=== PATIENT | female | born 1930 | race Caucasian/White ===

== ENCOUNTER 2016-06-23 15:18 | Emergency (ER) | payer MEDICARE, MEDICAID ==
[2016-06-23 16:12] LABS: #Basophils 0.1 thou/uL (0.0-0.2); #Eosinphils 0.1 thou/uL (0.0-0.7); #Lymphocytes 1.1 thou/uL (1.20-3.40); #Monocytes 0.5 thou/uL (0.11-0.59); %Basophils 1.4 % (0.0-1.0); %Eosinophils 2.5 % (0.0-10.0); %Lymphocytes 18.3 % (21.0-51.0); %Monocytes 8.5 % (0.0-10.0); %Neutrophils 69.3 % (42.0-75.0); Hemoglobin 12.3 g/dL (12.0-16.0); Mean Corpuscular HGB CONC 33.2 g/dL (32.0-36.0); Mean Corpuscular Volume 84.2 fl (81.0-99.0); Mean Platelet Volume 6.5 fL (7.4-10.4); Platelet Count 217 thou/uL (130-400); RBC Distribution Width 13.8 % (11.5-14.5); Red Blood Cell (RBC) Count 4.39 mill/uL (4.20-5.40); White Blood Cell (WBC) Count 5.8 thou/uL (4.8-10.8)
[2016-06-23 16:27] LABS: CKMB 2.5 ng/mL (0-6.6); Troponin I Less than 0.010 ng/mL (< 0.028)
[2016-06-23 16:28] LABS: Anion Gap 15 mmol/L (10-20); BUN (Urea Nitrogen) 20 mg/dL (9.8-20.1); Calc. Creatinine Clearance 0 mL/min (70-130); Carbon Dioxide 28 mmol/L (23-31); Chloride 103 mmol/L (98-107); Estimated GFR-MDRD 60; Potassium 4.3 mmol/L (3.5-5.1); Sodium 142 mmol/L (136-145)
[2016-06-23 16:29] LABS: ALT (SGPT) 17 U/L (0-55); AST (SGOT) 19 U/L (5-34); Albumin 4.2 g/dL (3.4-4.8); Alkaline Phosphatase 62 U/L (40-150); Bilirubin, Total 0.4 mg/dL (0.2-1.2); CK (CPK) 89 U/L (29-168); Calcium 10.1 mg/dL (7.8-10.44); Globulin 2.2 g/dL (2.4-3.5); Glucose 91 mg/dL (83-110); Lipase 30 U/L (8-78); Protein, Total 6.4 g/dL (5.8-8.1)
--- NOTE | 2016-06-23 16:29 | RAD ---
SINGLE VIEW OF CHEST: Date: 06/23/16 INDICATION: Chest pain. COMPARISON: Prior exam dated 10/14/15. FINDINGS: There is stable elevation of the right hemidiaphragm. No focal air space opacity, pleural effusion, or pneumothorax evident. Heart size and pulmonary vasculature are within normal limits. Chronic osse ous changes are similar to the comparison exam. IMPRESSION: No acute cardiopulmonary abnormality. POS: H
--- NOTE | 2016-06-23 16:56 | PICIS ---
[facility] EMERGENCY RECORD TRIAGE (MonJun 23, 2016 15:23 TRAVIS) TRIAGE NOTES: CHEST PAIN SINCE MONDAY MORNING. (MonJun 23, 2016 15:23 TRAVIS) PATIENT: NAME: Veronika Rios, AGE: 86, GENDER: female, : Sat 1930, TIME OF GREET: MonJun 23, 2016 15:19, PREFERRED LANGUAGE: Lithuanian, ETHNICITY: Not or , FALL RISK: YES, ECODE BILLING MAP: [facility], SSN: [id number], Zip Code: [address], KG WEIGHT: 67.13 (est.), PHONE: , , , PERSON ID: [id number], PCP: MD Penaloza Grover. (MonJun 23, 2016 15:23 TRAVIS) COMPLAINT: HIGH RISK COMPLAINT: CHEST PAIN. (MonJun 23, 2016 15:23 TRAVIS) ADMISSION: URGENCY: 2 Emergent, ADMISSION SOURCE: Home, TRANSPORT: Walk-in, BED: ED -02. (MonJun 23, 2016 15:23 TRAVIS) ASSESSMENT: Additional Triage notes: PATIENT C/O CHEST PAIN SINCE MONDAY. (15:32 TRAVIS) PAIN: Location CHEST. (15:32 TRAVIS) IMMUNIZATIONS: Flu vaccine up to date, Tetanus immunization up to date, Pneumococcal vaccine up to date. (15:32 TRAVIS) SIRS SCORING: Heart Rate 55-109 (0), Temp range 96.8-101.1 (0), respiratory rate 12-24 (0), Mental Status altered: no (0). (15:32 TRAVIS) TRIAGE SCREENING: Patient denies suicidal ideation, Patient denies presence of domestic violence. (15:32 TRAVIS) PROVIDERS: TRIAGE NURSE: Trista Bueno RN. (MonJun 23, 2016 15:23 TRAVIS) PREVIOUS VISIT ALLERGIES: codeine sulfate, orange juice, Penicillins, PHENobarbital. (MonJun 23, 2016 15:23 TRAVIS) codeine sulfate, orange juice, Penicillins, PHENobarbital. (15:32 TRAVIS) KNOWN ALLERGIES Actonel codeine sulfate Penicillins PHENobarbital CURRENT MEDICATIONS (15:34 TRAVIS) amLODIPine: TABLET : Strength - 10 mg : ORAL Patient Dose: 5 mg Oral once a day (in the morning). aspirin: TABLET, CHEWABLE : Strength - 81 mg : ORAL Patient Dose: mg Oral once a day. Claritin: TABLET : Strength - 10 mg : ORAL Patient Dose: once a day (in the morning). gabapentin: TABLET : Strength - 300 mg : ORAL Patient Dose: 2 times a day. omeprazole: &a-1R&a+25V*p+0X*n1515M*c202B*c15G*c2P*p-0X&a-25V&a+1R Name: Veronika Rios : 1930 F86 MedRec: [id number] AcctNum: [id number] Prepared: Teri Jun 23, 2016 17:13 by Interface Page 1 of 10 pMD [facility] EMERGENCY RECORD CAPSULE,DELAYED RELEASE (ENTERIC COATED) : Strength - 20 mg : ORAL Patient Dose: once a day (in the morning). RisperDAL: TABLET : Strength - 1 mg : ORAL Patient Dose: once a day (at bedtime). Vitamin D3: TABLET : Strength - 1,000 unit : ORAL Patient Dose: 1 tab(s) Oral once a day. Naprosyn: TABLET : Strength - 500 mg : ORAL Patient Dose: 1 tab(s) Oral 2 times a day.as needed for pain. VITAL SIGNS VITAL SIGNS: BP: 161/81, Pulse: 78, Resp: 16, Temp: 98.1, Pain: 8, O2 sat: 98 on RA, Time: 06/23/2016 15:25. (15:25 TRAVIS) BP: 157/82, Pulse: 77, Resp: 16, Pain: 8, O2 sat: 96 on Room Air, Time: 06/23/2016 16:33. (16:33 TRAVIS) NURSING ASSESSMENT: CARDIOVASCULAR (15:41 TRAVIS) CONSTITUTIONAL: Patient arrives ambulatory, Gait steady, History obtained from patient, Patient appears comfortable, Patient cooperative, Patient alert, Oriented to person, place and time, Skin warm, Skin dry, Skin normal in color, Mucous membranes pink, Mucous membranes moist, Patient is well-groomed, Patient c/o chest pain that started monday around 0300. CARDIOVASCULAR: Cardiovascular assessment findings include heart rate normal, Heart rhythm normal sinus, Heart sounds normal. RESPIRATORY/CHEST: Breath sounds clear, Respiratory assessment findings include respiratory effort easy, Respirations regular, Conversing normally, Neck and chest exam findings include trachea midline, Chest expansion equal, Chest movement symmetrical. SAFETY: Side rails up, Cart/Stretcher in lowest position, Family at bedside, Call light within reach, Hospital ID band on. NURSING PROCEDURE: BEDSIDE RADIOLOGY (15:36 TRAVIS) PATIENT IDENTIFIER: Patient actively involved in identification process, Patient's identity verified by patient stating name, Patient's identity verified by patient stating date, Patient's identity verified by hospital ID bracelet. BEDSIDE RADIOLOGY: Portable chest x-ray performed. SAFETY: Side rails up, Cart/Stretcher in lowest position, Call light within reach, Hospital ID band on. NURSING PROCEDURE: BEAUTY CULTURIST (15:25 TRAVIS) PATIENT IDENTIFIER: Patient actively involved in identification process, Patient's identity verified by patient stating name, Patient's identity verified by patient stating date, Patient's identity verified by hospital ID bracelet. BEAUTY CULTURIST: Cardiac monitoring indicated for complaint of &a-1R&a+25V*p+0X*k6433L*c202B*c15G*c2P*p-0X&a-25V&a+1R Name: Veronika Rios : 1930 F86 MedRec: [id number] AcctNum: [id number] Prepared: [facility] Jun 23, 2016 17:13 by Interface Page 2 of 10 pMD [facility] EMERGENCY RECORD chest pain, Patient placed on statement request clerk, Patient placed on non-invasive blood pressure monitor, with disposable blood pressure cuff applied, Patient placed on continuous pulse oximetry, Adult/pediatric oxisensor applied, Oxygen saturation 98%. SAFETY: Side rails up, Cart/Stretcher in lowest position, Call light within reach, Hospital ID band on. VITAL SIGNS: BP: 161, / 81, Pulse: 78, Resp: 16, Temp: 98.1, Pain: 8, O2 sat: 98, on: RA. NURSING PROCEDURE: DISCHARGE NOTE (16:59 TRAVIS) DISCHARGE: Patient discharged to home, in a wheelchair, family driving, accompanied by other family member, Discharge instructions given to patient, Simple or moderate discharge teaching performed, Above person(s) verbalized understanding of discharge instructions and follow-up care. BELONGINGS: Belongings and valuables with patient upon arrival to the Emergency Department include:, Belongings and valuables with patient at time of discharge include:, Belongings remain with patient, Valuables remain with patient. SAFETY: Side rails up, Cart/Stretcher in lowest position, Family at bedside, Call light within reach, Hospital ID band on. NURSING PROCEDURE: EKG CHART (15:24 TRAVIS) PATIENT IDENTIFIER: Patient actively involved in identification process, Patient's identity verified by patient stating name, Patient's identity verified by patient stating date, Patient's identity verified by hospital ID bracelet. EKG: EKG indicated for complaint of chest pain, 12 lead EKG performed on the left chest, done by WATSON WILSON, first EKG. FOLLOW-UP: After procedure, EKG for interpretation given to Dr. EVANS. SAFETY: Side rails up, Cart/Stretcher in lowest position, Call light within reach, Hospital ID band on. NURSING PROCEDURE: IV PATIENT IDENITIFIER: Patient actively involved in identification process, Patient's identity verified by patient stating name, Patient's identity verified by patient stating date, Patient's identity verified by hospital ID bracelet. (15:41 TRAVIS) Patient actively involved in identification process, Patient's identity verified by patient stating name, Patient's identity verified by patient stating date, Patient's identity verified by hospital ID bracelet. (16:59 TRAVIS) IV SITE 1: IV therapy indicated for hydration, IV therapy indicated for medication administration, IV established, to the right hand, using a 20 gauge catheter, in two attempts, Saline lock established, Flushed with normal saline (mls): 10, Labs drawn at time of placement, labeled in the presence of the patient and sent to lab, Notes: Started by WATSON Wilson. (15:41 TRAVIS) IV therapy indicated for hydration, IV therapy indicated for medication &a-1R&a+25V*p+0X*r1613O*c202B*c15G*c2P*p-0X&a-25V&a+1R Name: Jacquelyn Rioscar Venegas : 1930 F86 MedRec: [id number] AcctNum: [id number] Prepared: Teri Jun 23, 2016 17:13 by Interface Page 3 of 10 D [facility] EMERGENCY RECORD administration. (16:59 TRAVIS) FOLLOW-UP SITE 1: After procedure, sterile transparent dressing applied, After procedure, no drainage at IV site, After procedure, no swelling at IV site, After procedure, no redness at IV site. (15:41 TRAVIS) IV discontinued, due to patient being discharged, catheter intact. (16:59 TRAVIS) SAFETY: Side rails up, Cart/Stretcher in lowest position, Call light within reach, Hospital ID band on. (15:41 TRAVIS) Side rails up, Cart/Stretcher in lowest position, Family at bedside, Call light within reach, Hospital ID band on. (16:59 TRAVIS) ORDER DETAILS Order Name: BEAUTY CULTURIST ED, Status: Done, Time: 15:28 06/23/2016, User: TRAVIS, - Ordered for: Ersmdo, ., - Entered by: WATSON Bueno Cassie - Teri Jun 23, 2016 15:28, - Quantity: 1, Order Name: Cardiac Profile w/CKMB & Troponin - I, Status: Active, Time: 15:28 06/23/2016, User: TRAVIS, - Ordered for: Ersmdo, ., - Entered by: WATSON Bueno Cassie - Teri Jun 23, 2016 15:28, - Quantity: 1, Order Name: CBC with Differential, Status: Active, Time: 15:28 06/23/2016, User: TRAVIS, - Ordered for: Ersmdo, ., - Entered by: WATSON Bueno Cassie - Thu Jun 23, 2016 15:28, - Quantity: 1, Order Name: CK (CPK), Status: Active, Time: 15:28 06/23/2016, User: TRAVIS, - Ordered for: Ersmdo, ., - Entered by: WATSON Bueno Cassie - Thu Jun 23, 2016 15:28, - Quantity: 1, Order Name: Comprehensive Metabolic Panel, Status: Active, Time: 15:28 06/23/2016, User: TRAVIS, - Ordered for: Ersmdo, ., - Entered by: WATSON Bueno Cassie - Teri Jun 23, 2016 15:28, - Quantity: 1, Order Name: EKG 12 Lead in Emergency Room, Status: Active, Time: 15:28 06/23/2016, User: TRAVIS, - Ordered for: Ersmdo, ., - Entered by: WATSON Bueno, Trista [facility] Jun 23, 2016 15:28, - Quantity: 1, Order Name: ERRT Pulse Oximeter ER, Status: Active, Time: 15:28 06/23/2016, User: TRAVIS, - Ordered for: Ersmdo, ., - En[facility] WATSON [facility]eno[facility], [facility] 15:28, - Quantity: 1, Order Name: GIVE ASPIRIN UNLESS CONTRAINDICATED, Status: Canceled, &a-1R&a+25V*p+0X*s0746L*c202B*c15G*c2P*p-0X&a-25V&a+1R Name: Veronika Rios : 1930 F86 MedRec: [id number] AcctNum: [id number] Prepared: MonJun 23, 2016 17:13 by Interface Page 4 of 10 D [facility] EMERGENCY RECORD Time: 15:40 06/23/2016, User: TRAVIS, - Ordered for: Ersmdo, ., - Entered by: WATSON Bueno, [facility] Jun 23, 2016 15:28, - Quantity: 1, Order Name: Lipase, Status: Active, Time: 15:28 06/23/2016, User: TRAVIS, - Ordered for: Ersmdo, ., - Entered by: WATSON Bueno, Trista [facility] Jun 23, 2016 15:28, - Quantity: 1, Order Name: SALINE LOCK, Status: Done, Time: 15:40 06/23/2016, User: TRAVIS, - Ordered for: Ersmdo, ., - Entered by: WATSON Bueno Cassie [facility] Jun 23, 2016 15:28, - Quantity: 1, Order Name: XR Chest 1 View Portable, Status: Active, Time: 15:28 06/23/2016, User: TRAVIS, - Ordered for: Ersmdo, ., - Entered by: WATSON Bueno, Trista - [facility] Jun 23, 2016 15:28, - Quantity: 1. HPI CHEST PAIN (15:38 SHAN) CHIEF COMPLAINT: Patient presents for evaluation of chest pain, ongoing. HISTORIAN: History provided by patient, having left upper chest, left arm and left leg pain since Monday; today physical therapy requested she be evaluated before her therapy could be continued. QUALITY: Pain is dull in nature. TIME COURSE: Gradual onset of symptoms. ROS (15:39 SHAN) CONSTITUTIONAL: Negative constitutional review of systems, Historian denies chills, denies fever. EYES: Negative eye review of systems. ENT: Negative ears, nose, throat review of systems. CARDIOVASCULAR: Negative cardiovascular review of systems, Historian denies chest pain, denies palpitations. RESPIRATORY: Negative respiratory review of systems, Historian denies cough, denies shortness of breath. GI: Negative gastrointestinal review of systems, Historian denies abdominal pain, denies constipation, denies diarrhea. MUSCULOSKELETAL: Negative musculoskeletal review of systems. SKIN: Negative skin review of systems. NEUROLOGIC: Negative neurologic review of systems. ENDOCRINE: Negative endocrine review of systems. HEMO/LYMPHATIC: Normal hematologic/lymphatic system review. PSYCHIATRIC: Negative psychiatric review of systems. NOTES: All other ROS is negative except as listed in HPI. 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 Past medical history includes history of hypertension, which has been treated. OSTEOPEROSIS, SCOLIOSIS, AAA(NOT TREATED). Pt has had several cardiac workups per son; all testing have been negative. VERIFIED 06/23/16. (15:32 TRAVIS) FEMALE SURGICAL HISTORY: verified 02-04-14, Surgical history of cholecystectomy. Hx of Splenic artery aneurysm, Surgical history of cholecystectomy, laparoscopic, Date of surgery 2003, Surgical history of hernia repair, Date of surgery 1967, Notes ABDOMINAL HERNIA REPAIR, Surgical history of hysterectomy. VERIFIED 06/23/16. (15:32 TRAVIS) PSYCHIATRIC HISTORY: Notes: verified 02-04-14, No previous psychiatric history, Notes: DENIES. (15:32 TRAVIS) SOCIAL HISTORY: Social History includes verified 02-04-14, Patient has no smoking history, Patient denies alcohol use, Patient denies drug use, Patient has no smoking history, Patient denies alcohol use, Patient denies drug use. VERIFIED 10/14/15. (15:32 TRAVIS) FAMILY HISTORY: No significant family history. (15:32 TRAVIS) NOTES: I have reviewed and agree with the PMH/PSxH/FamHx/SocHx obtained by the nurse. (15:39 SHAN) PHYSICAL EXAM (15:39 SHAN) CONSTITUTIONAL: Vital signs reviewed, Patient appears non toxic, Patient alert and oriented to person, place and time, Pt is in no apparent distress. HEAD: Head exam included findings of head atraumatic, normocephalic. EYES: Eye exam included findings of eyelids normal to inspection, Pupils equally round and reactive to light, Extraocular muscles intact. ENT: ENT exam normal, Nose exam normal, no nasal deformity, no bleeding from nares, Pharynx exam normal, Mouth exam normal, mucous membranes moist. NECK: Neck exam included findings of normal range of motion, Trachea midline. RESPIRATORY CHEST: Respiratory and chest exam normal, Breath sounds clear, No wheezing, No rales, Chest exam included findings of chest movement symmetrical, Chest expansion equal. CARDIOVASCULAR: Cardiovascular assessment normal, Cardiovascular exam included findings of heart rate regular rate and rhythm, Heart sounds normal. &a-1R&a+25V*p+0X*k3389F*c202B*c15G*c2P*p-0X&a-25V&a+1R Name: Veronika Rios : 1930 F86 MedRec: [id number] AcctNum: [id number] Prepared: [facility] Jun 23, 2016 17:13 by Interface Page 6 of 10 pMD [facility] EMERGENCY RECORD ABDOMEN FEMALE: Abdominal exam included findings of abdomen nontender, Bowel sounds normal, no mass, no pulsatile masses, no peritoneal signs. BACK: Back exam included findings of normal inspection, range of motion normal, no costovertebral angle tenderness. UPPER EXTREMITY: Upper extremity exam included findings of inspection normal, Range of motion normal. LOWER EXTREMITY: Lower extremity exam included findings of inspection normal, Range of motion normal. NEURO: Neuro exam findings include patient oriented to person, place and time, Speech normal, no focal motor deficits, no focal sensory deficits. SKIN: Skin exam included findings of skin warm, dry, and normal in color. LYMPHATIC: Lymphatic exam normal. PSYCHIATRIC: Psychiatric exam included findings of patient oriented to person place and time, Normal affect. EVENTS ATTENDING: MD Evans Stanley saw the patient at [facility] Jun 23, 2016 16:38. (16:38 SHAN) TRANSFER: Triage to Emergency Main ED -02. (15:23 TRAVIS) Removed from Emergency Main ED -02. (17:02 TRAVIS) DOCTOR NOTES (16:37 SHAN) TEXT: Overall neg eval for cardiac etiology of her complaints at this time. Suspect more musculoskeletal in origin. DATA REVIEWED: Lab data reviewed, Xray data reviewed, Reviewed EKG. PROBLEM LIST No recorded problems DIAGNOSIS (16:38 SHAN) FINAL: PRIMARY: atypical chest pain. DISPOSITION PATIENT: Disposition Type: Discharge, Disposition: *Discharge Home. (16:38 SHAN) Patient left the department. (17:02 TRAVIS) INSTRUCTION (16:39 SHAN) DISCHARGE: CHEST PAIN ATYPICAL. FOLLOWUP: MD Ca, [place], [facility], [address] [place] [address], . SPECIAL: 1. ok to use otc meds for discomfort 2. at this time the discomforts do not appear from the heart 3. please do followup with your regular provider and discuss other evaluations they may or may not wish to have done. &a-1R&a+25V*p+0X*e2511M*c202B*c15G*c2P*p-0X&a-25V&a+1R Name: Veronika Rios : 1930 F86 MedRec: [id number] AcctNum: [id number] Prepared: MonJun 23, 2016 17:13 by Interface Page 7 of 10 pMD [facility] EMERGENCY RECORD PRESCRIPTION No recorded prescriptions IMAGING EKG: Image captured from scanner. (15:42 EROG) *DISCHARGE INSTRUCTIONS RECEIPT: Image captured from scanner. (17:00 TRAVIS) *SUPPLY CHARGE SHEET: Image captured from scanner. (17:00 TRAVIS) ADMIN (16:40 SHAN) DIGITAL SIGNATURE: MD Evans Stanley. RESULTS LABORATORY: CBC with Differential Collection DT: MonJun 23, 2016 16:09, White Blood Cell (WBC) Count 5.8 thou/uL, Range (4.8-10.8), Red Blood Cell (RBC) Count 4.39 mill/uL, Range (4.20-5.40), Hemoglobin 12.3 g/dL, Range (12.0-16.0), Hematocrit 37.0 %, Range (36.0-47.0), Mean Corpuscular Volume 84.2 fl, Range (81.0-99.0), Mean Corpuscular Hemoglobin 28.0 pg, Range (27.0-31.0), Mean Corpuscular HGB CONC 33.2 g/dL, Range (32.0-36.0), RBC Distribution Width 13.8 %, Range (11.5-14.5), Platelet Count 217 thou/uL, Range (130-400), *Mean Platelet Volume 6.5 - L fL, Range (7.4-10.4), %Neutrophils 69.3 %, Range (42.0-75.0), *%Lymphocytes 18.3 - L %, Range (21.0-51.0), %Monocytes 8.5 %, Range (0.0-10.0), %Eosinophils 2.5 %, Range (0.0-10.0), *%Basophils 1.4 - H %, Range (0.0-1.0), #Neutrophils 4.0 thou/uL, Range (1.40-6.50), *#Lymphocytes 1.1 - L thou/uL, Range (1.20-3.40), #Monocytes 0.5 thou/uL, Range (0.11-0.59), #Eosinphils 0.1 thou/uL, Range (0.0-0.7), #Basophils 0.1 thou/uL, Range (0.0-0.2). (16:20 SHAN) Cardiac Profile w/CKMB & TropI Collection DT: MonJun 23, 2016 16:09, CKMB 2.5 ng/mL, Range (0-6.6), Troponin I Less than 0.010 ng/mL, Range (< 0.028). (16:37 SHAN) Lipase Collection DT: MonJun 23, 2016 16:09, Lipase 30 U/L, Range (8-78). (16:37 SHAN) CK (CPK) Collection DT: MonJun 23, 2016 16:09, CK (CPK) 89 U/L, Range (29-168). (16:37 SHAN) Comprehensive Metabolic Panel Collection DT: MonJun 23, 2016 16:09, Sodium 142 mmol/L, Range (136-145), Potassium 4.3 mmol/L, Range (3.5-5.1), Chloride 103 mmol/L, Range (98-107), Carbon Dioxide 28 mmol/L, Range (23-31), Anion Gap 15 mmol/L, Range (10-20), BUN (Urea Nitrogen) 20 mg/dL, Range (9.8-20.1), Creatinine 0.90 mg/dL, Range (0.6-1.1), &a-1R&a+25V*p+0X*i3106U*c202B*c15G*c2P*p-0X&a-25V&a+1R Name: Veronika Rios : 1930 F86 MedRec: [id number] AcctNum: [id number] Prepared: MonJun 23, 2016 17:13 by Interface Page 8 of 10 pMD [facility] EMERGENCY RECORD Estimated GFR-MDRD 60 , Reference Range for Estimated GFR: Greater than 90, mL/min/1.73 m2 NOTE: The MDRD equation has not been validated for use, with the elderly (over 70 years of age), women, patients with, serious comorbid condition or persons with extremes of body size, muscle, mass, or nutritional status. , Glucose 91 mg/dL, Range (83-110), Calcium 10.1 mg/dL, Range (7.8-10.44), Bilirubin, Total 0.4 mg/dL, Range (0.2-1.2), Protein, Total 6.4 g/dL, Range (5.8-8.1), NOTE: Plasma values are generally 0.3 to 0.5 g/dL higher than serum values, due to the presence of fibrinogen. , Albumin 4.2 g/dL, Range (3.4-4.8), *Globulin 2.2 - L g/dL, Range (2.4-3.5), Alb/Glob Ratio 1.9 g/dL, Range (1.2-2.2), Alkaline Phosphatase 62 U/L, Range (40-150), AST (SGOT) 19 U/L, Range (5-34), ALT (SGPT) 17 U/L, Range (0-55). (16:37 SHAN) Cardiac Profile w/CKMB & TropI Collection DT: MonJun 23, 2016 16:09, CKMB 2.5 ng/mL, Range (0-6.6), Troponin I Less than 0.010 ng/mL, Range (< 0.028). (16:49 LWAL) Lipase Collection DT: MonJun 23, 2016 16:09, Lipase 30 U/L, Range (8-78). (16:49 LWAL) CK (CPK) Collection DT: MonJun 23, 2016 16:09, CK (CPK) 89 U/L, Range (29-168). (16:49 LWAL) Comprehensive Metabolic Panel Collection DT: MonJun 23, 2016 16:09, Sodium 142 mmol/L, Range (136-145), Potassium 4.3 mmol/L, Range (3.5-5.1), Chloride 103 mmol/L, Range (98-107), Carbon Dioxide 28 mmol/L, Range (23-31), Anion Gap 15 mmol/L, Range (10-20), BUN (Urea Nitrogen) 20 mg/dL, Range (9.8-20.1), Creatinine 0.90 mg/dL, Range (0.6-1.1), Estimated GFR-MDRD 60 , Reference Range for Estimated GFR: Greater than 90, mL/min/1.73 m2 NOTE: The MDRD equation has not been validated for use, with the elderly (over 70 years of age), women, patients with, serious comorbid condition or persons with extremes of body size, muscle, mass, or nutritional status. , Glucose 91 mg/dL, Range (83-110), Calcium 10.1 mg/dL, Range (7.8-10.44), Bilirubin, Total 0.4 mg/dL, Range (0.2-1.2), Protein, Total 6.4 g/dL, Range (5.8-8.1), NOTE: Plasma values are generally 0.3 to 0.5 g/dL higher than serum values, due to the presence of fibrinogen. , Albumin 4.2 g/dL, Range (3.4-4.8), &a-1R&a+25V*p+0X*k8427S*c202B*c15G*c2P*p-0X&a-25V&a+1R Name: BlancaVeronika : 1930 F86 MedRec: [id number] AcctNum: [id number] Prepared: Teri Jun 23, 2016 17:13 by Interface Page 9 of 10 pMD [facility] EMERGENCY RECORD *Globulin 2.2 - L g/dL, Range (2.4-3.5), Alb/Glob Ratio 1.9 g/dL, Range (1.2-2.2), Alkaline Phosphatase 62 U/L, Range (40-150), AST (SGOT) 19 U/L, Range (5-34), ALT (SGPT) 17 U/L, Range (0-55). (16:49 LWAL) Diane: TRAVIS=WATSON Bueno, Trista SMALLS=WATSON Sullivan, Steve LWAL=WATSON Jiemnez, Inge ZHAO=MD Cristina, Etienne &a-1R&a+25V*p+0X*j0390R*c202B*c15G*c2P*p-0X&a-25V&a+1R Name: Veronika Rios : 1930 F86 MedRec: [id number] AcctNum: [id number] Prepared: Teri Jun 23, 2016 17:13 by Interface Page 10 of 10 pMD MTDD
== END 2016-06-23 17:00 | disposition home or self-care (01) ==
LOC: MADERS 15:18
DX: R07.89 Other chest pain (principal); E05.90 Thyrotoxicosis, unspecified without thyrotoxic crisis or storm; K21.9 Gastro-esophageal reflux disease without esophagitis; E78.5 Hyperlipidemia, unspecified; I10 Essential (primary) hypertension; M81.0 Age-related osteoporosis without current pathological fracture; Z79.899 Other long term (current) drug therapy
CPT/HCPCS: 71010; 80053; 82550; 82553; 83690; 84484; 85025

== ENCOUNTER 2018-09-10 10:46 | Outpatient (CLI) | payer MEDICARE, MEDICAID ==
[2018-09-10 11:45] LABS: #Basophils 0.1 thou/uL (0.0-0.2); #Eosinphils 0.3 thou/uL (0.0-0.7); #Lymphocytes 1.4 thou/uL (1.20-3.40); #Monocytes 0.5 thou/uL (0.11-0.59); #Neutrophils 2.5 thou/uL (1.40-6.50); %Basophils 1.4 % (0.0-1.0); %Eosinophils 7.1 % (0.0-10.0); %Lymphocytes 29.1 % (21.0-51.0); %Monocytes 10.2 % (0.0-10.0); %Neutrophils 52.2 % (42.0-75.0); Hemoglobin 12.3 g/dL (12.0-16.0); Mean Corpuscular Hemoglobin 27.7 pg (27.0-31.0); Mean Corpuscular Volume 83.7 fL (78.0-98.0); Mean Platelet Volume 6.1 fL (7.4-10.4); Platelet Count 206 thou/uL (130-400); RBC Distribution Width 13.3 % (11.5-14.5); Red Blood Cell (RBC) Count 4.44 mill/uL (4.20-5.40); White Blood Cell (WBC) Count 4.8 thou/uL (4.8-10.8)
[2018-09-10 11:49] LABS: ALT (SGPT) 9 U/L (8-55); AST (SGOT) 16 U/L (5-34); Albumin 3.8 g/dL (3.4-4.8); Alkaline Phosphatase 60 U/L (40-150); Anion Gap 13 mmol/L (10-20); BUN (Urea Nitrogen) 22 mg/dL (9.8-20.1); Bilirubin, Total 0.5 mg/dL (0.2-1.2); Calc. Creatinine Clearance 0 mL/min (70-130); Calcium 9.2 mg/dL (7.8-10.44); Carbon Dioxide 26 mmol/L (23-31); Cardiac Risk 2.7 (Less than 4.5); Chloride 106 mmol/L (98-107); Cholesterol 175 mg/dl (< 200 Desired); Estimated GFR-MDRD 56; Globulin 2.2 g/dL (2.4-3.5); Glucose 74 mg/dL (83-110); HDL Cholesterol 65 mg/dL (>60 Neg Risk); LDL Cholesterol, Calculated 103 mg/dL; Potassium 4.4 mmol/L (3.5-5.1); Sodium 141 mmol/L (136-145); Triglycerides 36 mg/dL (Less than 150)
== END 2018-09-10 10:47 | disposition home or self-care (01) ==
LOC: MADLABBHPM 10:46
PROVIDERS: ATTEND Family Medicine
DX: M54.9 Dorsalgia, unspecified (principal); G89.4 Chronic pain syndrome; R26.89 Other abnormalities of gait and mobility
CPT/HCPCS: 80053; 80061; 84443; 85025

== ENCOUNTER 2018-09-11 12:20 | Outpatient (CLI) | payer MEDICARE, MEDICAID ==
[2018-09-11 13:54] LABS: Bilirubin Negative (Negative); Blood, Urine Negative (Negative); Glucose, Urine (Dipstick) Negative (Negative); Leukocyte Trace (Negative); Nitrite Positive (Negative); Protein, Urine (Dipstick) Negative (Neg-Trace); Urobilinogen 0.2 mg/dL (0.2-1.0); pH, Urine 5.5 (5.0-9.0)
[2018-09-11 13:57] LABS: Bacteria/HPF 4+ HPF (None Seen); Clarity Slightly Cloudy (Clear); Crystals/HPF 1+ CA OXALATE HPF (Negative); RBC/HPF 0-3 HPF (0-3); Squamous Epithelial 0-3 HPF (0-3)
== END 2018-09-11 12:21 | disposition home or self-care (01) ==
LOC: MADLABBHPM 12:20
PROVIDERS: ATTEND Family Medicine
DX: M54.9 Dorsalgia, unspecified (principal); G89.4 Chronic pain syndrome; R06.09 Other forms of dyspnea
CPT/HCPCS: 81003; 81015

== ENCOUNTER 2019-03-01 11:34 | Emergency (ER) | payer MEDICARE, MEDICAID ==
--- NOTE | 2019-03-01 12:23 | CT ---
CT Chest WO Con History: Fall. Pain in ribs Comparison: None. Findings: Patchy opacities right upper lobe and right middle lobe. Left lung is clear. No pneumothora x. No effusion. High-grade levoscoliosis thoracolumbar spine. Elevation right hemidiaphragm. Dense calcifications of the thyroid. Ascending aorta measures up to 3.7 cm. Multiple hypodensities of the kidneys incompletely evaluated. Cholecystectomy. 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 The The costal cartilage appears be intact. Sternum and manubrium are intact. Visualized clavicles are intact. Buckle fracture left anterior armida nth rib. Fracture evaluation is limited due to extensive motion artifact. Impression: 1. Rib fracture evaluation is limited due to extensive motion artifact although there does appear to be a buckle fracture left anterior seventh rib. 2. No pneumothorax or effusion. 3. Patchy opacities in the right upper lobe along the superior segment right lower lobe likely aspira tion as there is debris within the right mainstem bronchus.
== END 2019-03-01 12:55 | disposition home or self-care (01) ==
LOC: MADERS 11:34
DX: S22.32XA Fracture of one rib, left side, initial encounter for closed fracture (principal); I10 Essential (primary) hypertension; E21.3 Hyperparathyroidism, unspecified; E78.5 Hyperlipidemia, unspecified; K21.9 Gastro-esophageal reflux disease without esophagitis; Z79.82 Long term (current) use of aspirin; Z79.899 Other long term (current) drug therapy; W18.30XA Fall on same level, unspecified, initial encounter
CPT/HCPCS: 71250

== ENCOUNTER 2019-03-08 11:10 | Emergency (ER) | payer MEDICARE, MEDICAID ==
[~2019-03-08 11:10] MED LIST: Sodium Chloride 0.9% 100 ML BAG ONE
[2019-03-08 11:56] LABS: #Basophils 0.1 thou/uL (0.0-0.2); #Lymphocytes 0.7 thou/uL (1.20-3.40); #Monocytes 0.5 thou/uL (0.11-0.59); #Neutrophils 3.7 thou/uL (1.40-6.50); %Basophils 1.2 % (0.0-1.0); %Eosinophils 0.9 % (0.0-10.0); %Monocytes 9.9 % (0.0-10.0); Hemoglobin 11.9 g/dL (12.0-16.0); Mean Corpuscular HGB CONC 32.2 g/dL (32.0-36.0); Mean Corpuscular Hemoglobin 27.2 pg (27.0-31.0); Mean Corpuscular Volume 84.5 fL (78.0-98.0); Mean Platelet Volume 5.7 fL (7.4-10.4); Platelet Count 233 thou/uL (130-400); RBC Distribution Width 13.2 % (11.5-14.5); Red Blood Cell (RBC) Count 4.38 mill/uL (4.20-5.40)
[2019-03-08 12:17] LABS: ALT (SGPT) 18 U/L (8-55); AST (SGOT) 21 U/L (5-34); Albumin 4.3 g/dL (3.4-4.8); Alkaline Phosphatase 74 U/L (40-110); Anion Gap 14 mmol/L (10-20); BUN (Urea Nitrogen) 11 mg/dL (9.8-20.1); Bilirubin, Total 0.4 mg/dL (0.2-1.2); Calc. Creatinine Clearance 0 mL/min (70-130); Calcium 10.5 mg/dL (7.8-10.44); Carbon Dioxide 28 mmol/L (23-31); Chloride 102 mmol/L (98-107); Estimated GFR-MDRD 59; Globulin 3.4 g/dL (2.4-3.5); Glucose 85 mg/dL (83-110); Potassium 3.3 mmol/L (3.5-5.1); Protein, Total 7.7 g/dL (6.0-8.3); Sodium 141 mmol/L (136-145)
[2019-03-08] MEDS ORDERED: Diltiazem 125 MG/25 ML ONE (12:35)
[2019-03-08] MEDS ORDERED: Potassium Chloride 10 MEQ TAB ONE (12:37)
--- NOTE | 2019-03-08 12:40 | RAD ---
Exam: Chest one view HISTORY:Irregular heartbeat Comparison: 06/23/2016 FINDINGS: Lungs: No masses or consolidation. Stable granulomatous consultation of the left midlung. Cardiac silhouette:Accentuated by portable technique and patient rotation although grossly stable Pulmonary vessels: No significant congestion Pleural Spaces: Left pleural space is incompletely imaged. No right pleural effusion evident Pneumothorax: None Osseous abnormalities: None of acuity. IMPRESSION: No focal consolidation is visualized.
[2019-03-08] MEDS ORDERED: traMADol HCl 50 MG TAB ONE (13:32)
== END 2019-03-08 12:47 | disposition short-term general hospital (02) ==
LOC: MADERS 11:10
DX: I48.91 Unspecified atrial fibrillation (principal); E87.6 Hypokalemia; E21.3 Hyperparathyroidism, unspecified; K21.9 Gastro-esophageal reflux disease without esophagitis; E78.5 Hyperlipidemia, unspecified; Z79.82 Long term (current) use of aspirin; Z79.899 Other long term (current) drug therapy
CPT/HCPCS: 36415; 71045; 80053; 83880; 84484; 85025; 93005; 96365; 96376; J3490